=== PATIENT | male | born 1945 | race Caucasian/White ===

== ENCOUNTER → 2021-04-11 | Outpatient (CLI) | payer MEDICARE ==
[~2021-04-11] MED LIST: AMBIEN 10 MG TA10 MG PO; FISH OIL 1,0001 EAC5 PO; LISINOPRIL20 MG PO; PLAVIX 75 MG TA75 MG PO; ZOCOR 20 MG TAB20 M1 PO
== END ==
LOC: M.MRI 06:56
DX: M43.06 Spondylolysis, lumbar region (principal); M89.662 Osteopathy after poliomyelitis, left lower leg; B91 Sequelae of poliomyelitis; M48.061 Spinal stenosis, lumbar region without neurogenic claudication; M46.06 Spinal enthesopathy, lumbar region

== ENCOUNTER 2021-08-02 00:58 | Emergency (ER) | payer MEDICARE ==
[~2021-08-02] VITALS: Ht 177.8 cm; Wt 81.7 kg
[2021-08-02] MEDS ORDERED: ASA81BEC PO (01:28)
[2021-08-02] MEDS ORDERED: ZYRTEC10 M4 PO (01:28)
[2021-08-02] MEDS ORDERED: LISINOPRIL20 MG PO (01:28)
[2021-08-02] MEDS ORDERED: OMEPRAZOLE40 MG PO (01:29)
[2021-08-02] MEDS ORDERED: FOLIC ACID1 MG PO (01:29)
[2021-08-02] MEDS ORDERED: NORVASC5 MG PO (01:29)
[2021-08-02] MEDS ORDERED: FISH OIL 1,0001 EAC9 PO (01:29)
[2021-08-02] MEDS ORDERED: VITAMIN D3125 MC2 PO (01:30)
[2021-08-02] MEDS ORDERED: XYOSTED100 MG/0.5 SUBQ (01:31)
[2021-08-02] MEDS ORDERED: EYE DROPS15 M1 EA. EYE (01:32)
[2021-08-02] MEDS ORDERED: PREDNISONE50 MG PO (03:37)
[2021-08-02 03:50] VITALS: BP 102/62
== END 2021-08-02 03:50 | disposition home or self-care (01) ==
LOC: M.ERS 00:58
DX: T78.3XXA Angioneurotic edema, initial encounter (principal); I10 Essential (primary) hypertension; F17.210 Nicotine dependence, cigarettes, uncomplicated; Z79.82 Long term (current) use of aspirin; Z79.899 Other long term (current) drug therapy; Z88.1 Allergy status to other antibiotic agents; Z88.5 Allergy status to narcotic agent; Z88.8 Allergy status to other drugs, medicaments and biological substances

== ENCOUNTER → 2021-08-03 | Outpatient (CLI) | payer MEDICARE ==
[~2021-08-03] MED LIST changes: +ASA81BEC PO; +EYE DROPS15 M1 EA. EYE; +FISH OIL 1,0001 EAC9 PO; +FOLIC ACID1 MG PO; +NORVASC5 MG PO; +OMEPRAZOLE40 MG PO; +PREDNISONE50 MG PO; +VITAMIN D3125 MC2 PO; +XYOSTED100 MG/0.5 SUBQ; +ZYRTEC10 M4 PO
== END ==
LOC: M.CT 10:40
DX: R91.1 Solitary pulmonary nodule (principal); J43.9 Emphysema, unspecified; J90 Pleural effusion, not elsewhere classified; N28.1 Cyst of kidney, acquired

== ENCOUNTER → 2021-08-13 | Outpatient (CLI) | payer MEDICARE ==
[2021-08-13 09:15] LABS: CREATININE 0.9 mg/dL (0.6-1.3)
== END ==
LOC: M.LAB 08-07 13:37
DX: N28.1 Cyst of kidney, acquired (principal); G45.8 Other transient cerebral ischemic attacks and related syndromes

== ENCOUNTER → 2021-08-16 | Outpatient (CLI) | payer MEDICARE | LOC: M.ULTRA 09:11 | DX: I65.23 Occlusion and stenosis of bilateral carotid arteries (principal); I10 Essential (primary) hypertension; Z86.79 Personal history of other diseases of the circulatory system ==

== ENCOUNTER → 2021-10-19 | Outpatient (CLI) | payer MEDICARE ==
[2021-10-19 09:57] LABS: CREATININE 1.1 mg/dL (0.6-1.3)
== END ==
LOC: M.LAB 09:18 → M.CT 11:00
PROVIDERS: ATTEND Surgery Vascular Surgery
DX: I74.5 Embolism and thrombosis of iliac artery (principal); I70.8 Atherosclerosis of other arteries; J98.4 Other disorders of lung; I25.10 Atherosclerotic heart disease of native coronary artery without angina pectoris; N28.1 Cyst of kidney, acquired; I70.213 Atherosclerosis of native arteries of extremities with intermittent claudication, bilateral legs; N40.0 Benign prostatic hyperplasia without lower urinary tract symptoms; M47.817 Spondylosis without myelopathy or radiculopathy, lumbosacral region; M48.061 Spinal stenosis, lumbar region without neurogenic claudication